=== PATIENT | male | born 1945 | race Caucasian/White ===

== ENCOUNTER 2021-05-07 12:37 | Inpatient (IN) | payer MEDICARE ==
[2021-05-07] MEDS ORDERED: HYDROmorphone 0.5 MG/0.5 ML SYRINGE IVP PRN (20:52)
[2021-05-07] MEDS ORDERED: HEPARIN SODIUM 1,000 UN/ML (10ML VL) IV ONE (20:56)
[2021-05-07] MEDS ORDERED: HEPARIN SODIUM 1,000 UN/ML (10ML VL) IV PRN (20:56)
[2021-05-07] MEDS ORDERED: HEPARIN SOD,PORK IN 0.45% NACL 25,000 UNIT in 0.45% NACL 1 250ML.BAG IV SCH (21:00)
--- NOTE | 2021-05-07 21:53 | XR ---
EXAMINATION TYPE: XR abdomen complete w decub DATE OF EXAM: 05/07/2021 COMPARISON: NONE HISTORY: Abdominal pain TECHNIQUE: 6 views FINDINGS: There is blunting of the left costophrenic angle. There is infiltrate left lung base. There is no sign of intestinal obstruction or pneumoperitoneum. Fecal pattern is normal. There is no evide nce of a mass. There is some spurring in the lumbar spine. There are no pathologic calcifications ove r the kidneys. IMPRESSION: Nonacute abdomen. Infiltrate and atelectasis left lower lobe. This appears the same or sl ightly worse than 263 yesterday.
[2021-05-07] MEDS: SODIUM CHLORIDE 0.9% 1,000 ML IV SCH (21:57)
[2021-05-07] MEDS: PIPERACILLIN-TAZOBACTAM 3.375 GM in SODIUM CHLORIDE 0.9% 100 ML IVPB SCH (23:30)
[2021-05-08 03:57] LABS: Appearance,Urine Clear (Clear); Bilirubin,Urine Negative (Negative); Blood,Urine Negative (Negative); Color,Urine Yellow; Glucose,Urine (UA) Negative (Negative); Ketones,Urine 1+ (Negative); Leukocyte Esterase,Urine Negative (Negative); Nitrite,Urine Negative (Negative); PH, Urine 5.5 (5.0-8.0); Protein,Urine Trace (Negative); Specific Gravity,Urine 1.018 (1.001-1.035)
[2021-05-08 05:44] LABS: Basophils # (A) 0.1 k/uL (0-0.2); Basophils % (A) 1 %; Eosinophils # (A) 0.3 k/uL (0-0.7); Eosinophils % (A) 2 %; HCT 40.1 % (39.0-53.0); HGB 13.2 gm/dL (13.0-17.5); Lymphocytes # (A) 2.7 k/uL (1.0-4.8); Lymphocytes % (A) 14 %; MCH 32.6 pg (25.0-35.0); MCHC 32.9 g/dL (31.0-37.0); MCV 99.1 fL (80.0-100.0); Macrocytosis Slight; Monocytes # (A) 0.6 k/uL (0-1.0); Monocytes % (A) 3 %; Neutrophils # (A) 14.3 k/uL (1.3-7.7); Neutrophils % (A) 77 %; Platelet Count 247 k/uL (150-450); Poikilocytosis Slight; RBC 4.05 m/uL (4.30-5.90); WBC 18.6 k/uL (3.8-10.6)
[2021-05-08 05:48] LABS: INR 1.2 (<1.2); Partial Thromboplastin Time 29.5 sec (22.0-30.0); Prothrombin Time 12.4 sec (9.0-12.0)
[2021-05-08 06:27] LABS: ALT 20 U/L (4-49); AST 38 U/L (17-59); African American GFR (CKD) >90 (>60 ml/min/1.73 sqM); Albumin 3.9 g/dL (3.5-5.0); Alkaline Phosphatase 119 U/L (38-126); Anion Gap 10 mmol/L; Blood Urea Nitrogen 11 mg/dL (9-20); Calcium 8.7 mg/dL (8.4-10.2); Carbon Dioxide 25 mmol/L (22-30); Chloride 102 mmol/L (98-107); Glucose 109 mg/dL (74-99); Magnesium 2.2 mg/dL (1.6-2.3); Non-African American GFR(CKD) >90 (>60 ml/min/1.73 sqM); Sodium 137 mmol/L (137-145); Total Bilirubin 1.5 mg/dL (0.2-1.3); Total Protein 6.4 g/dL (6.3-8.2)
[2021-05-08] MEDS: PANTOPRAZOLE 40 MG/10 ML VIAL IVP SCH (08:50)
[2021-05-08] MEDS: PIPERACILLIN-TAZOBACTAM 3.375 GM in SODIUM CHLORIDE 0.9% 100 ML IVPB SCH (08:50)
--- NOTE | 2021-05-08 08:58 | US ---
EXAMINATION TYPE: US liver DATE OF EXAM: 05/08/2021 COMPARISON: CT from outside institution 05/05/2021 CLINICAL HISTORY: sludge possible mass. abd pain, patient was not cooperative and was laying on right side EXAM MEASUREMENTS: Liver Length: 18.4 cm, span thought likely to be underestimated on measurement Gallbladder Wall: 0.2 cm CBD: 0.3 cm Right Kidney: 11.9 x 4.6 x 5.1 cm Pancreas: portions seen appear wnl Liver: limited views due to patient not cooperating to move or hold breath, posterior right lobe cys t = 2.0cm, liver is enlarged Gallbladder: stones and probable sludge seen, no wall thickening Evidence for sonographic Tolentino's sign: YES CBD: wnl Right Kidney: medial cyst seen = 2.9cm, appears simple IMPRESSION: Positive sonographic Tolentino's sign. Cholelithiasis. Correlate for possible hepatic steato sis, there is hepatomegaly. There are limitations to the exam.
[2021-05-08] MEDS: amLODIPine 5 MG TAB PO SCH (12:07)
[2021-05-08] MEDS: lisinopriL 20 MG TAB PO SCH (12:08)
[2021-05-08] MEDS: CLOPIDOGREL 75 MG TAB PO SCH (13:20)
--- NOTE | 2021-05-08 14:34 | P.HPIM ---
History of Present Illness H&P Date: 05/08/21 This is a 75-year-old male who was admitted to hospital transfer from [facility] where he was initally admitted for evaluation from his PCP on Wednesday for some abdominal pain and discomfort as well as distention. Patient has a past medical history of chest pain, hypertension, A. fib, neuropathy, coronary artery disease. Patient also has a history of cardiac stenting, 2013 and 2017. Patient is evaluated today with his at the bedside. Patient states that he fell one week ago at the gas station after pumping his gas, he had a presyncopal episode, he states that he did not lose consciousness or hit his head. His came to the gas station picked up and to continue the emergency room where he was evaluated for a hypertensive urgency. His blood pressure was found to be 219 systolic he was treated and discharged on Wednesday from [facility]. At that time his white count was found to be in the 20s, blood cultures were taken, results unavailable at this time. He followed up with his PCP on Wednesday and was readmitted to [facility] for an acute abdominal pain. During the course of his hospital stay. Multiple imaging completed, findings of the CT abdomen pelvis could not exclude neoplasm, there are multiple lesions from his liver, cholelithiasis, a prominent prostate, and left urinary bladder wall thickening. In addition spinal megaly was noted. Patient's pro calcitonin was elevated to 0.27, and addition blood glucose was between 130s to 140s. Patient was started on IV Zosyn. states that patient had experienced a coughing fit at [facility] and since then has had intermittent sharp pain over his left upper abdominal quadrant. He was transferred to [facility] for further evaluation for abdominal pain and A. fib RVR. Liver ultrasound completed here revealed positive sonographic Tolentino's, cholelithiasis, possible hepatic steatosis. Abdominal x-ray revealed a nonacute abdomen, infiltrate and atelectasis in the left lower lobe. REVIEW OF SYSTEMS: CONSTITUTIONAL: No fever, no malaise, no fatigue. HEENT: No recent visual problems or hearing problems. Denied any sore throat. CARDIOVASCULAR: No chest pain, orthopnea, PND, no palpitations, no syncope. PULMONARY: No shortness of breath, no cough, no hemoptysis. GASTROINTESTINAL: No diarrhea, no nausea, no vomiting, intermittent left abdominal pain NEUROLOGICAL: No headaches, no weakness, no numbness. HEMATOLOGICAL: Denies any bleeding or petechiae. GENITOURINARY: Denies any burning micturition. Reports urgency and frequency. MUSCULOSKELETAL/RHEUMATOLOGICAL: Denies any joint pain, swelling, or any muscle pain. ENDOCRINE: Denies any polyuria or polydipsia. The rest of the 14-point review of systems is negative. PHYSICAL EXAMINATION: GENERAL: The patient is alert and oriented x3, not in any acute distress. Well developed, well nourished. HEENT: Pupils are round and equally reacting to light. EOMI. No scleral icterus. No conjunctival pallor. Normocephalic, atraumatic. No pharyngeal erythema. No thyromegaly. CARDIOVASCULAR: S1 and S2 present. No murmurs, rubs, or gallops. PULMONARY: Chest is clear to auscultation, no wheezing or crackles. ABDOMEN: Soft, nontender, nondistended, normoactive bowel sounds. No palpable organomegaly. MUSCULOSKELETAL: No joint swelling or deformity. EXTREMITIES: No cyanosis, clubbing, or pedal edema. NEUROLOGICAL: Gross neurological examination did not reveal any focal deficits. SKIN: No rashes. Assessment and plan Assessment Left upper quadrant abdominal pain most likely related to splenomegaly cannot rule out splenic infarct Leukocytosis related to hepatosplenomegaly Hepatosplenomegaly No evidence to suggest an acute bacterial infection; pro calcitonin level was 0.27 at [place], procalcitonin less than 0.3 does not suggest a bacterial etiology for symptoms. Cholelithiasis rule out cholecystitis appreciate surgical input Bladder wall thickening, incidental finding Paroxysmal atrial fibrillation, with rapid ventricular rate maintained on eliquis, Hypertension Infiltrate and/or atelectasis left lower lobe, could suggest some possible pneumonia, chest x-ray has been ordered. Urinary retention, most likely related to BPH, prominent prostate suggested on imaging Plan Left upper quadrant abdominal pain most likely related to splenomegaly, imaging cannot rule out a splenic infarct Leukocytosis related to hepatosplenomegaly, oncology consult, follow recommendations Hepatosplenomegaly consult to oncology has been placed No evidence to suggest an acute bacterial infection, pro calcitonin level was 0.27 at [place], procalcitonin less than 0.3 does not suggest a bacterial etiology for symptoms. IV antibiotics were discontinued Incidental finding of bladder wall thickening, urinalysis ordered to assess hematuria Urinary retention, patient has been started on Flomax Patient is pending a 2 view x-ray to assess for any infiltrate or atelectasis that was found on the abdominal x-ray. At this time antibiotics have been discontinued as there is no evidence to suggest an acute bacterial infection. Eliquis and Plavix are currently on hold pending surgical input for possible intervention for cholecystectomy. If this is cancel and there is felt no need for gallbladder removal, patient can continue on Plavix and eliquis can be reordered. Patient will be started on Flomax. Repeat labs in the morning. Past Medical History Past Medical History: Atrial Fibrillation, Chest Pain / Angina, Hypertension Additional Past Medical History / Comment(s): neuropathy History of Any Multi-Drug Resistant Organisms: None Reported Past Surgical History: Back Surgery, Heart Catheterization With Stent, Hernia Repair Additional Past Surgical History / Comment(s): cataract bilat, cardioversion Past Anesthesia/Blood Transfusion Reactions: No Reported Reaction Date of Last Stent Placement:: 2013 Past Psychological History: No Psychological Hx Reported Smoking Status: Never smoker Past Drug Use History: None Reported - Past Family History Mother Family Medical History: Myocardial Infarction ([place]) Father Family Medical History: Diabetes Mellitus Medications and Allergies Home Medications Medication Instructions Recorded Confirmed Type Apixaban [Eliquis] 5 mg PO BID 05/07/21 05/07/21 History Atorvastatin [Lipitor] 40 mg PO W/SUPPER 05/07/21 05/07/21 History Clopidogrel [Plavix] 75 mg PO DAILY@119905/07/21 05/07/21 History Neuro Assist 1 tab PO DAILY 05/07/21 05/07/21 History Prostate Complete 1 tab PO DAILY@1200 05/07/21 05/07/21 History Vits A,C,E/Lutein/Minerals 1 tab PO DAILY 05/07/21 05/07/21 History [Ocuvite with Lutein Tablet] amLODIPine [Norvasc] 5 mg PO DAILY@0905/07/21 05/07/21 History lisinopriL [Zestril] 20 mg PO DAILY 05/07/21 05/07/21 History Allergies Allergy/AdvReac Type Severity Reaction Status Date / Time No Known Allergies Allergy Unverified 05/07/21 18:34 Physical Exam Vitals: Vital Signs Temp Pulse Pulse Resp BP Pulse Ox 05/08/21 08:00 99.3 F 71 20 156/68 95 05/08/21 03:30 97.9 F 77 17 168/74 95 05/07/21 23:30 98.2 F 78 18 155/75 97 05/07/21 19:30 98.5 F 73 18 137/68 95 05/07/21 17:18 96.5 F L 96 16 134/72 97 05/07/21 16:47 96.5 F L 96 16 134/72 96 Intake and Output 05/07/21 05/08/21 05/08/21 22:59 06:59 14:59 Intake Total 120 Output Total 200 175 300 Balance -80 -175 -300 Intake: Oral 120 Output: Urine 200 175 300 Other: Voiding Method Urinal # Voids 1 1 2 # Bowel Movements 0 Weight 77.7 kg 80 kg Results CBC & Chem 7: 05/08/21 05:16 05/08/21 05:16 Labs: Abnormal Lab Results - Last 24 Hours (Table) 05/08/21 05/08/21 05/08/21 Range/Units 03:13 05:16 05:16 WBC 18.6 H (3.8-10.6) k/uL RBC 4.05 L (4.30-5.90) m/uL Neutrophils # 14.3 H (1.3-7.7) k/uL PT 12.4 H (9.0-12.0) sec INR 1.2 H (<1.2) Glucose (74-99) mg/dL Total Bilirubin (0.2-1.3) mg/dL Urine Protein Trace H (Negative) Urine Ketones 1+ H (Negative) 05/08/21 Range/Units 05:16 WBC (3.8-10.6) k/uL RBC (4.30-5.90) m/uL Neutrophils # (1.3-7.7) k/uL PT (9.0-12.0) sec INR (<1.2) Glucose 109 H (74-99) mg/dL Total Bilirubin 1.5 H (0.2-1.3) mg/dL Urine Protein (Negative) Urine Ketones (Negative) Thrombosis Risk Factor Assmnt - Choose All That Apply Any of the Below Risk Factors Present?: Yes Each Factor Represents 1 point: Acute [place] Each Risk Factor Represents 3 Points: Age 75 years or older Thrombosis Risk Factor Assessment Total Risk Factor Score: 4 Thrombosis Risk Factor Assessment Level: Moderate Risk
--- NOTE | 2021-05-08 14:35 | P.GSCN ---
History of Present Illness Consult date: 05/08/21 History of present illness: CHIEF COMPLAINT: Abdominal pain HISTORY OF PRESENT ILLNESS: This is a 75-year-old male with a known history of coronary artery disease with cardiac stents, atrial fibrillation anticoagulated with Eliquis, hypertension and hyperlipidemia. Patient denies any prior abdominal surgery. He presented to [facility] with complaints of left upper quadrant abdominal pain. Patient has had pain for about one week. He initially went to the ER this past Wednesday and at that time had elevated blood pressure. Medications were adjusted. He had his follow-up with his PCP. Patient continued to complain of left pain upper quadrant abdominal pain. Initially they thought it might have been a pulled muscle from cough. Patient reports decreased appetite. He denies any nausea or vomiting. No increased pain after eating. Denies any right upper quadrant abdominal pain. He had liver ultrasound that showed a positive sonographic Tolentino sign. Cholelithiasis. Possible hepatic steatosis. And hepatomegaly. [facility] Patient denies any fever or chills sweats. He has had leukocytosis. PAST MEDICAL HISTORY: See list. PAST SURGICAL HISTORY: See list. MEDICATIONS: See list. ALLERGIES: See list. SOCIAL HISTORY: No illicit drug use. REVIEW OF SYSTEMS: CONSTITUTIONAL: Denies fever or chills. HEENT: Denies blurred vision, vision changes, or eye pain. Denies hemoptysis CARDIOVASCULAR: Denies chest pain or pressure. RESPIRATORY: No shortness of breath. GASTROINTESTINAL: See HPI for pertinent findings HEMATOLOGIC: Denies bleeding disorders. GENITOURINARY: Denies any blood in urine or increased urinary frequency. SKIN: Denies pruitis. Denies rash. PHYSICAL EXAM: VITAL SIGNS: Reviewed GENERAL: Well-developed in no acute distress. HEENT: No sclera icterus. Extraocular movements grossly intact. Moist buccal mucosa. Head is atraumatic, normocephalic. No nasal drainage. ABDOMEN: Soft. Nondistended. Tenderness with palpation of the left upper quadrant. No tenderness with palpation of the right upper quadrant NEUROLOGIC: Alert and oriented. Cranial nerves II through XII grossly intact. LABORATORY DATA: WBC 18.6 hemoglobin 13.2 platelets 247 INR 1.2 sodium 137 creatinine 0.67 Total bilirubin 1.5 LFTs normal Urinalysis trace protein 1+ ketones negative blood IMAGING: Abdominal x-ray nonacute abdomen. Infiltrate and atelectasis left lower lobe. Liver ultrasound as stated above Computed tomography scan abdomen and pelvis at [place] shows scattered subtle hypodensities within the liver are nonspecific. Cysts and metastatic disease could be considered. Follow-up ultrasound with liver is recommended. Calcified cyst on the left kidney most monitoring is recommended. There may be some thickening along the posterior lateral left urinary bladder wall. Additional workup is recommended. Neoplasm is not excluded. Splenomegaly. Some splenic infarcts are not excluded. ASSESSMENT: 1. Left upper quadrant abdominal pain with splenomegaly noted on CAT scan 2. Cholelithiasis and mildly thickened gallbladder wall noted on ultrasound. No right upper quadrant abdominal pain on exam 3. Leukocytosis 4. History of atrial fibrillation anticoagulated with Eliquis 5. History of coronary artery disease with prior cardiac stents on Plavix PLAN: -No surgical intervention planned -Continue conservative management -Continue workup for leukocytosis. -Agree with hematology consult Thank you for this consultation Physician [employer] Attacher note has been reviewed by physician. Signing provider agrees with the documented findings, assessment, and plan of care. Past Medical History Past Medical History: Atrial Fibrillation, Chest Pain / Angina, Hypertension Additional Past Medical History / Comment(s): neuropathy History of Any Multi-Drug Resistant Organisms: None Reported Past Surgical History: Back Surgery, Heart Catheterization With Stent, Hernia Repair Additional Past Surgical History / Comment(s): cataract bilat, cardioversion Past Anesthesia/Blood Transfusion Reactions: No Reported Reaction Date of Last Stent Placement:: 2013 Past Psychological History: No Psychological Hx Reported Smoking Status: Never smoker Past Drug Use History: None Reported - Past Family History Mother Family Medical History: Myocardial Infarction ([place]) Father Family Medical History: Diabetes Mellitus Medications and Allergies Home Medications Medication Instructions Recorded Confirmed Type Apixaban [Eliquis] 5 mg PO BID 05/07/21 05/07/21 History Atorvastatin [Lipitor] 40 mg PO W/SUPPER 05/07/21 05/07/21 History Clopidogrel [Plavix] 75 mg PO DAILY@119905/07/21 05/07/21 History Neuro Assist 1 tab PO DAILY 05/07/21 05/07/21 History Prostate Complete 1 tab PO DAILY@1200 05/07/21 05/07/21 History Vits A,C,E/Lutein/Minerals 1 tab PO DAILY 05/07/21 05/07/21 History [Ocuvite with Lutein Tablet] amLODIPine [Norvasc] 5 mg PO DAILY@0930 05/07/21 05/07/21 History lisinopriL [Zestril] 20 mg PO DAILY 05/07/21 05/07/21 History Allergies Allergy/AdvReac Type Severity Reaction Status Date / Time No Known Allergies Allergy Unverified 05/07/21 18:34 Surgical - Exam Vital Signs Temp Pulse Resp BP Pulse Ox 96.5 F L 96 16 134/72 96 05/07/21 16:47 05/07/21 16:47 05/07/21 16:47 05/07/21 16:47 05/07/21 16:47 Results - Labs 05/08/21 05:16 05/08/21 05:16 Abnormal Lab Results - Last 24 Hours (Table) 05/08/21 05/08/21 05/08/21 Range/Units 03:13 05:16 05:16 WBC 18.6 H (3.8-10.6) k/uL RBC 4.05 L (4.30-5.90) m/uL Neutrophils # 14.3 H (1.3-7.7) k/uL PT 12.4 H (9.0-12.0) sec INR 1.2 H (<1.2) Glucose (74-99) mg/dL Total Bilirubin (0.2-1.3) mg/dL Urine Protein Trace H (Negative) Urine Ketones 1+ H (Negative) 05/08/21 Range/Units 05:16 WBC (3.8-10.6) k/uL RBC (4.30-5.90) m/uL Neutrophils # (1.3-7.7) k/uL PT (9.0-12.0) sec INR (<1.2) Glucose 109 H (74-99) mg/dL Total Bilirubin 1.5 H (0.2-1.3) mg/dL Urine Protein (Negative) Urine Ketones (Negative) Diabetes panel 05/08/21 Range/Units 05:16 Sodium 137 (137-145) mmol/L Potassium 4.0 (3.5-5.1) mmol/L Chloride 102 (98-107) mmol/L Carbon Dioxide 25 (22-30) mmol/L BUN 11 (9-20) mg/dL Creatinine 0.67 (0.66-1.25) mg/dL Glucose 109 H (74-99) mg/dL Calcium 8.7 (8.4-10.2) mg/dL AST 38 (17-59) U/L ALT 20 (4-49) U/L Alkaline Phosphatase 119 (38-126) U/L Total Protein 6.4 (6.3-8.2) g/dL Albumin 3.9 (3.5-5.0) g/dL Calcium panel 05/08/21 Range/Units 05:16 Calcium 8.7 (8.4-10.2) mg/dL Albumin 3.9 (3.5-5.0) g/dL Pituitary panel 05/08/21 Range/Units 05:16 Sodium 137 (137-145) mmol/L Potassium 4.0 (3.5-5.1) mmol/L Chloride 102 (98-107) mmol/L Carbon Dioxide 25 (22-30) mmol/L BUN 11 (9-20) mg/dL Creatinine 0.67 (0.66-1.25) mg/dL Glucose 109 H (74-99) mg/dL Calcium 8.7 (8.4-10.2) mg/dL Adrenal panel 05/08/21 Range/Units 05:16 Sodium 137 (137-145) mmol/L Potassium 4.0 (3.5-5.1) mmol/L Chloride 102 (98-107) mmol/L Carbon Dioxide 25 (22-30) mmol/L BUN 11 (9-20) mg/dL Creatinine 0.67 (0.66-1.25) mg/dL Glucose 109 H (74-99) mg/dL Calcium 8.7 (8.4-10.2) mg/dL Total Bilirubin 1.5 H (0.2-1.3) mg/dL AST 38 (17-59) U/L ALT 20 (4-49) U/L Alkaline Phosphatase 119 (38-126) U/L Total Protein 6.4 (6.3-8.2) g/dL Albumin 3.9 (3.5-5.0) g/dL
--- NOTE | 2021-05-08 15:10 | XR ---
EXAMINATION TYPE: XR chest 2V DATE OF EXAM: 05/08/2021 COMPARISON: Chest x-ray from outside institution 05/06/2021 HISTORY: Abnormal chest x-ray, left lower lobe atelectasis, infiltrate, shortness of breath TECHNIQUE: Frontal and lateral views of the chest are obtained. FINDINGS: Abnormal density at the left lung base is again noted, there are subsegmental basilar atel ectatic changes. Prominence of pulmonary artery could be indicative of pulmonary artery hypertension. The aorta is dense. Patient is rotated. Cardiac mediastinal silhouette is stable, heart is enlarged, although size may be accentuated by rotation. No evident pneumothorax or sizable effusion. IMPRESSION: Basilar atelectasis, correlate to exclude pneumonia. Cardiomegaly.
[2021-05-08] MEDS: ACETAMINOPHEN TAB 325 MG TAB PO PRN (16:51)
[2021-05-08] MEDS: ATORVASTATIN 40 MG TAB PO SCH (16:51)
[2021-05-08] MEDS: TAMSULOSIN 0.4 MG CAP.ER.24H PO SCH (16:52)
[2021-05-08] MEDS: SODIUM CHLORIDE 0.9% 1,000 ML IV SCH (19:23)
[2021-05-09] MEDS: ACETAMINOPHEN TAB 325 MG TAB PO PRN ×3 (00:04→19:49)
[2021-05-09] MEDS: SODIUM CHLORIDE 0.9% 1,000 ML IV SCH ×2 (00:05→22:04)
--- NOTE | 2021-05-09 00:06 | P.CONS ---
History of Present Illness - Reason for Consult Consult date: 05/08/21 Splenomegaly, Abd pain - History of Present Illness This is a 75 yr old WM, initially seen in consult in the office in 2012. He apparently was noted to have a [place] [address], per his . He was asymptomatic. In 06/03 , he had multiple teeth extracted without any abnormal bleeding. Around 2011, he slipped and hurt his right ribcage. He developed marked bruising , that persisted over several weeks. He thus had repeat CBC done [place] 10/20 [place] [address]. He was sen by Dr Casas, and had a workup which was negative, other than a low titre positive CANDI, which was non specific. 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 In 11/02, his counts started to decline, and he received IVIg. He did not have a significant response, with platelets going down to 7 on 11/14, and then slowly rising back into the [address] range ( [address] on 12/05). A bone marrow was recommended. The pateint was apprehensive about the procedure and was referred here for a second opinion. I reassured him that the procedure would be appropriate in this case. The pt was asked to continue f/u with Dr Casas, but decided to establish care here. He had a bone marrow done on 03/03/13, which he tolerated well. This was consistent with peripheral destruction/ITP. As his counts were stable, in a safe range, it was decide to follow him with observation. He was given a trial of steroids to increase counts temporarily for dental extraction. This was ineffective, and observation was continued as the procedure was put on hold. The patient did not follow-up in the office for 08/05 The patient was admitted this time, as a transfer from [facility] About a week prior to this admission he had had a fall due to presyncope. He was admitted to the hospital at that time and then discharged after treatment for Hypertensive urgency with SBP 219.. He subsequently followed up with his PCP, and was readmitted is complaining of left-sided abdominal pain. According to his the patient had started out the patient had an acute episode of coughing. He had a CT scan, which apparently showed gallbladder stones/sludge, liver lesions and splenomegaly Patient had abdominal x-ray on admission here which showed a left lower lobe infiltrate. Ultrasound showed hepatomegaly but did not mention any lesions in the liver. There appeared to be gallbladder sludge/stones with positive Tolentino sign. Chest x-ray again showed infiltrate/atelectasis in the left lower lobe Consult was therefore placed for further evaluation and recommendations CBC this admission showed elevated WBC with predominant neutrophilia. Platelets are actually normal. The patient is a very poor historian. He was not able to give me any significant details about recent events. He actually remembered seeing me several years ago for low platelets. However he was unable to provide any details about any hematology follow-up or treatment in the interim. Above details were obtained from the EMR. Review of Systems Constitutional: Reports fatigue, Reports weakness Eyes: denies blurred vision, denies pain Ears: deny: decreased hearing, ear discharge, earache, tinnitus Ears, nose, mouth and throat: Denies headache, Denies sore throat Cardiovascular: Reports as per HPI Respiratory: Reports cough Gastrointestinal: Reports abdominal pain Genitourinary: Reports as per HPI Musculoskeletal: Reports muscle weakness Integumentary: Denies pruritus, Denies rash Neurological: Reports as per HPI, Reports confusion Psychiatric: Reports confusion Endocrine: Reports fatigue Hematologic/Lymphatic: Reports as per HPI Past Medical History Past Medical History: Atrial Fibrillation, Chest Pain / Angina, Hypertension Additional Past Medical History / Comment(s): neuropathy History of Any Multi-Drug Resistant Organisms: None Reported Past Surgical History: Back Surgery, Heart Catheterization With Stent, Hernia Repair Additional Past Surgical History / Comment(s): cataract bilat, cardioversion Past Anesthesia/Blood Transfusion Reactions: No Reported Reaction Date of Last Stent Placement:: 2013 Past Psychological History: No Psychological Hx Reported Smoking Status: Never smoker Past Drug Use History: None Reported - Past Family History Mother Family Medical History: Myocardial Infarction ([place]) Father Family Medical History: Diabetes Mellitus Medications and Allergies Home Medications Medication Instructions Recorded Confirmed Type Apixaban [Eliquis] 5 mg PO BID 05/07/21 05/07/21 History Atorvastatin [Lipitor] 40 mg PO W/SUPPER 05/07/21 05/07/21 History Clopidogrel [Plavix] 75 mg PO DAILY@1200 05/07/21 05/07/21 History Neuro Assist 1 tab PO DAILY 05/07/21 05/07/21 History Prostate Complete 1 tab PO DAILY@1200 05/07/21 05/07/21 History Vits A,C,E/Lutein/Minerals 1 tab PO DAILY 05/07/21 05/07/21 History [Ocuvite with Lutein Tablet] amLODIPine [Norvasc] 5 mg PO DAILY@0930 05/07/21 05/07/21 History lisinopriL [Zestril] 20 mg PO DAILY 05/07/21 05/07/21 History Allergies Allergy/AdvReac Type Severity Reaction Status Date / Time No Known Allergies Allergy Unverified 05/07/21 18:34 Physical Exam Vitals: Vital Signs Temp Pulse Resp BP Pulse Ox 05/08/21 20:35 97.9 F 66 18 162/83 97 05/08/21 16:35 98.9 F 76 20 160/71 97 05/08/21 11:54 98.2 F 73 20 175/80 96 05/08/21 08:00 99.3 F 71 20 156/68 95 05/08/21 03:30 97.9 F 77 17 168/74 95 Intake and Output 05/08/21 05/08/21 05/09/21 14:59 22:59 06:59 Intake Total 580 Output Total 400 400 Balance -400 180 Intake: Intake, IV Titration 400 Amount Piperacillin-Tazobactam 3 100 .375 gm In Sodium Chloride 0.9% 100 ml @ 25 mls/hr IVPB Q8HR [facility] Rx# :[id number] Sodium Chloride 0.9% 1, 300 000 ml @ 75 mls/hr IV . [id number] [facility] Rx#:[id number] Oral 180 Output: Urine 400 400 Other: Voiding Method Toilet # Voids 2 1 - Constitutional General appearance: no acute distress - EENT Eyes: EOMI, PERRLA ENT: hearing grossly normal, normal oropharynx - Neck Neck: no lymphadenopathy Thyroid: bilateral: normal size - Respiratory Respiratory: bilateral: CTA - Cardiovascular Rhythm: regular Heart sounds: normal: S1, S2 - Gastrointestinal General gastrointestinal: normal bowel sounds, soft - Integumentary Integumentary: normal - Neurologic Neurologic: CNII-XII intact - Musculoskeletal Musculoskeletal: generalized weakness - Psychiatric Anxious, poor recall Psychiatric: A&O x's 3 Results CBC & Chem 7: 05/08/21 05:16 09/16/21 05:16 Labs: Abnormal Lab Results - Last 24 Hours (Table) 05/08/21 05/08/21 05/08/21 Range/Units 03:13 05:16 05:16 WBC 18.6 H (3.8-10.6) k/uL RBC 4.05 L (4.30-5.90) m/uL Neutrophils # 14.3 H (1.3-7.7) k/uL PT 12.4 H (9.0-12.0) sec INR 1.2 H (<1.2) Glucose (74-99) mg/dL Total Bilirubin (0.2-1.3) mg/dL Urine Protein Trace H (Negative) Urine Ketones 1+ H (Negative) 05/08/21 Range/Units 05:16 WBC (3.8-10.6) k/uL RBC (4.30-5.90) m/uL Neutrophils # (1.3-7.7) k/uL PT (9.0-12.0) sec INR (<1.2) Glucose 109 H (74-99) mg/dL Total Bilirubin 1.5 H (0.2-1.3) mg/dL Urine Protein (Negative) Urine Ketones (Negative) Chest x-ray: report reviewed Abdominal x-ray: report reviewed CT scan - abdomen: report reviewed US - abdomen: report reviewed Assessment and Plan (1) Liver lesion Narrative/Plan: The patient's CT scan mentions some liver lesions described of subtle hypodensities. These appear to be nonspecific. Differentials include benign causes, but metastasis is not ruled out - MRI of the liver will be ordered to evaluate this further. Patient's physical exam is fairly nonspecific Current Visit: Yes Status: Acute Code(s): K76.9 - LIVER DISEASE, UNSPECIFIED SNOMED Code(s): 011394937 (2) Splenomegaly Narrative/Plan: CT scan mentions splenomegaly with possible splenic infarcts not ruled out. Physical exam is negative for any palpable adenopathy. Patient had lab workup for some pancytopenia which essentially the same lab workup splenomegaly in 2013, which was negative. This will be repeated - Repeat labs -Await MRI of the liver. If this shows chronic liver disease, this could expla in the splenomegaly. Current Visit: Yes Status: Acute Code(s): R16.1 - SPLENOMEGALY, NOT ELSEWHERE CLASSIFIED SNOMED Code(s): 59059392 (3) Leucocytosis Narrative/Plan: This appears to be reactive with predominant neutrophilia. Given the chest x-ray findings and his history, this could be due to left lower lobe pneumonia. In addition the patient has splenic infarcts that could explain the same also. Current Visit: Yes Status: Acute Code(s): D72.829 - ELEVATED WHITE BLOOD CELL COUNT, UNSPECIFIED SNOMED Code(s): 178301118 (4) Cholelithiases Narrative/Plan: Ultrasound mentioned cholelithiasis, positive Tolentino's sign. However on exam the patient did appear to be having any tenderness. Await surgical evaluation Current Visit: Yes Status: Acute Code(s): K80.20 - CALCULUS OF GALLBLADDER W/O CHOLECYSTITIS W/O OBSTRUCTION SNOMED Code(s): 474274630 (5) History of ITP Narrative/Plan: Had history of ITP when seen in 2012. At this time, platelet counts are normal. The patient was unable to provide any details as to if he had any hematologic treatment since his last follow-up with me in 08/05. We will to contact his to get any details in this regard Current Visit: Yes Status: Acute Code(s): Z86.2 - PRSNL HISTORY OF DIS OF THE BLD/BL[facility] Code(s): 880471207
[2021-05-09] MEDS: amLODIPine 5 MG TAB PO SCH (09:00)
[2021-05-09] MEDS: PANTOPRAZOLE 40 MG/10 ML VIAL IVP SCH (09:00)
[2021-05-09] MEDS: lisinopriL 20 MG TAB PO SCH (09:00)
[2021-05-09 09:03] LABS: Basophils # (A) 0.1 k/uL (0-0.2); Basophils % (A) 0 %; Eosinophils # (A) 0.3 k/uL (0-0.7); Eosinophils % (A) 2 %; HCT 41.1 % (39.0-53.0); HGB 13.3 gm/dL (13.0-17.5); Lymphocytes # (A) 2.5 k/uL (1.0-4.8); Lymphocytes % (A) 14 %; MCHC 32.4 g/dL (31.0-37.0); MCV 98.7 fL (80.0-100.0); Mean Platelet Volume 12.1; Monocytes # (A) 0.5 k/uL (0-1.0); Monocytes % (A) 3 %; Neutrophils # (A) 14.2 k/uL (1.3-7.7); Neutrophils % (A) 77 %; Platelet Count 269 k/uL (150-450); Poikilocytosis Slight; RBC 4.17 m/uL (4.30-5.90); RDW 15.1 % (11.5-15.5); WBC 18.4 k/uL (3.8-10.6)
[2021-05-09 09:06] LABS: ALT 27 U/L (4-49); AST 43 U/L (17-59); African American GFR (CKD) >90 (>60 ml/min/1.73 sqM); Albumin 3.9 g/dL (3.5-5.0); Alkaline Phosphatase 122 U/L (38-126); Anion Gap 9 mmol/L; Blood Urea Nitrogen 11 mg/dL (9-20); Calcium 8.9 mg/dL (8.4-10.2); Carbon Dioxide 26 mmol/L (22-30); Chloride 101 mmol/L (98-107); Glucose 97 mg/dL (74-99); Non-African American GFR(CKD) >90 (>60 ml/min/1.73 sqM); Potassium 3.8 mmol/L (3.5-5.1); Sodium 136 mmol/L (137-145); Total Bilirubin 1.4 mg/dL (0.2-1.3); Total Protein 6.4 g/dL (6.3-8.2)
--- NOTE | 2021-05-09 10:57 | P.PN ---
Subjective Progress Note Date: 05/09/21 CHIEF COMPLAINT: Abdominal pain HISTORY OF PRESENT ILLNESS: Patient is lying in bed comfortably. He reports improvement in his left upper quadrant abdominal pain. He denies any right upper quadrant abdominal pain. He was able to eat breakfast without any abdominal pain. Denies any nausea or vomiting. He's being followed by hematology. They've ordered an MRI of the liver for further evaluation of his liver lesions or cysts. Afebrile. WBC is 18.4 hemoglobin 13.3 platelets 269 INR 1.2 sodium 136 potassium 3.8 creatinine 0.58 Chest x-ray basilar atelectasis, correlate to exclude pneumonia. Cardiomegaly PHYSICAL EXAM: VITAL SIGNS: Reviewed. GENERAL: Well-developed in no acute distress. HEENT: No sclera icterus. Extraocular movements grossly intact. Moist buccal mucosa. Head is atraumatic, normocephalic. ABDOMEN: Soft. Nondistended. Nontender. NEUROLOGIC: Alert and oriented. Cranial nerves II through XII grossly intact. ASSESSMENT: 1. Left upper quadrant abdominal pain with spinal megaly noted on CAT scan. Patient's pain has resolved. 2. Cholelithiasis and mildly thickened gallbladder wall noted on ultrasound. No right upper quadrant abdominal pain on exam 3. Leukocytosis 4. History of atrial fibrillation anticoagulated with Eliquis 5. History of coronary artery disease with prior cardiac stents on Plavix PLAN: -No surgical intervention planned -Continue conservative management -Continue heart healthy diet -Continue heme/onc workup Physician Central Control Room Operator note has been reviewed by physician. Signing provider agrees with the documented findings, assessment, and plan of care. Objective - Vital Signs Vital signs: Vital Signs Temp 98.9 F 05/09/21 00:00 Pulse 74 05/09/21 04:50 Resp 05/09/21 04:50 BP 138/68 05/09/21 04:50 Pulse Ox 96 05/09/21 04:50 Intake & Output 05/08/21 05/09/21 05/09/21 18:59 06:59 18:59 Intake Total 580 Output Total 800 125 Balance -220 -125 Weight 73.5 kg Intake: Intake, IV Titration 400 Amount Piperacillin-Tazobactam 3 100 .375 gm In Sodium Chloride 0.9% 100 ml @ 25 mls/hr IVPB Q8HR [facility] Rx# :[id number] Sodium Chloride 0.9% 1, 300 000 ml @ 75 mls/hr IV . [id number] [facility] Rx#:[id number] Oral 180 Output: Urine 800 125 Other: Voiding Method Toilet # Voids 2 1 1 - Labs CBC & Chem 7: 05/09/21 07:56 05/09/21 07:56 Labs: Abnormal Lab Results - Last 24 Hours (Table) 05/09/21 05/09/21 Range/Units 07:56 07:56 WBC 18.4 H (3.8-10.6) k/uL RBC 4.17 L (4.30-5.90) m/uL Neutrophils # 14.2 H (1.3-7.7) k/uL Sodium 136 L (137-145) mmol/L Creatinine 0.58 L (0.66-1.25) mg/dL Total Bilirubin 1.4 H (0.2-1.3) mg/dL
[2021-05-09] MEDS: CLOPIDOGREL 75 MG TAB PO SCH (12:09)
--- NOTE | 2021-05-09 15:28 | P.PN ---
Subjective Progress Note Date: 05/09/21 This is a 75-year-old male who was admitted to hospital transfer from [facility] where he was initally admitted for evaluation from his PCP on Wednesday for some abdominal pain and discomfort as well as distention. Patient has a past medical history of chest pain, hypertension, A. fib, neuropathy, coronary artery disease. Patient also has a history of cardiac stenting, 2013 and 2017. Patient is evaluated today with his at the bedside. Patient states that he fell one week ago at the gas station after pumping his gas, he had a presyncopal episode, he states that he did not lose consciousness or hit his head. His came to the gas station picked up and to continue the emergency room where he was evaluated for a hypertensive urgency. His blood pressure was found to be 219 systolic he was treated and discharged on Wednesday from [facility]. At that time his white count was found to be in the 20s, blood cultures were taken, results unavailable at this time. He followed up with his PCP on Wednesday and was readmitted to [facility] for an acute abdominal pain. During the course of his hospital stay. Multiple imaging completed, findings of the CT abdomen pelvis could not exclude neoplasm, there are multiple lesions from his liver, cholelithiasis, a prominent prostate, and left urinary bladder wall thickening. In addition splenomegaly was noted. Patient's pro calcitonin was elevated to 0.27, and addition blood glucose was between 130s to 140s. Patient was started on IV Zosyn. states that patient had experienced a coughing fit at [facility] and since then has had intermittent sharp pain over his left upper abdominal quadrant. He was transferred to [facility] for further evaluation for abdominal pain and A. fib RVR. Liver ultrasound completed here revealed positive sonographic Tolentino's, cholelithiasis, possible hepatic steatosis. Abdominal x-ray revealed a nonacute abdomen, infiltrate and atelectasis in the left lower lobe. 05/09/2021 Patient is seen and evaluated in follow-up this morning and reports to having continued abdominal discomfort of the left upper and lower quadrant. Patient states the pain is intermittent and coming and going. MRI of the liver is ordered with oncology following closely. Surgery also following recommending conservative management and outpatient follow-up. Discussed with family at the bedside about treatment plan and will await MRI results and continue current medication regimen. Per nursing staff patient had some periods of confusion shortly after receiving Dilaudid and will discontinue and add [place] as needed and continue with Tylenol. Patient is continued on heart healthy diet with no reports of nausea or vomiting noted. Encouraged increased activity as tolerated. Review of systems: Constitutional: reports of fatigue, no reports of fever, or chills Cardiovascular: No reports of chest pain or palpitations Respiratory: No reports of shortness of breath or cough GI: No reports of nausea, vomiting, or diarrhea, reports abdominal pain : No reports of dysuria or retention Neurovascular: Reports generalized weakness All medications have been reviewed Active Medications Acetaminophen (Acetaminophen Tab 325 Mg Tab) 650 mg PO Q6HR PRN PRN Reason: Fever and/ or Mild Pain Last Admin: 05/09/21 08:59 Dose: 650 mg Documented by: Hydrocodone Bitart/Acetaminophen (Hydrocodone/Apap 5-325mg 1 Each Tab) 1 each PO Q6HR PRN PRN Reason: Pain Amlodipine Besylate (Amlodipine 5 Mg Tab) 5 mg PO DAILY@0930 [facility] Last Admin: 05/09/21 09:00 Dose: 5 mg Documented by: Atorvastatin Calcium (Atorvastatin 40 Mg Tab) 40 mg PO W/SUPPER [facility] Last Admin: 05/08/21 16:51 Dose: 40 mg Documented by: Clopidogrel Bisulfate (Clopidogrel 75 Mg Tab) 75 mg PO DAILY@1200 [facility] Last Admin: 05/09/21 12:09 Dose: 75 mg Documented by: Sodium Chloride (Saline 0.9%) 1,000 mls @ 75 mls/hr IV .[id number] [facility] Last Admin: 05/09/21 00:05 Dose: 75 mls/hr Documented by: Lisinopril (Lisinopril 20 Mg Tab) 20 mg PO DAILY [facility] Last Admin: 05/09/21 09:00 Dose: 20 mg Documented by: Pantoprazole Sodium (Pantoprazole 40 Mg Tablet) 40 mg PO AC-BRKFST [facility] Tamsulosin HCl (Tamsulosin 0.4 Mg Cap.Er.24h) 0.4 mg PO PC-SUPPER [facility] Last Admin: 05/08/21 16:52 Dose: 0.4 mg Documented by: Physical exam: GENERAL: The patient is alert and oriented x3, Well developed, well nourished. Temp is 97.9F, pulse is 65, respirations are 16, blood pressure is 131/66, oxygen saturation is 95% on room air. HEENT: Pupils are round and equally reacting to light. EOMI. No scleral icterus. No conjunctival pallor. Normocephalic, atraumatic. No pharyngeal erythema. No thyromegaly. CARDIOVASCULAR: S1 and S2 muffled PULMONARY: Diminished breath sounds bilaterally with some scattered rhonchi noted. ABDOMEN: Soft, mildly tender on palpation, nondistended, normoactive bowel sounds. No palpable organomegaly. MUSCULOSKELETAL: No joint swelling or deformity. EXTREMITIES: No cyanosis, clubbing, or pedal edema. NEUROLOGICAL: Gross neurological examination did not reveal any focal deficits. SKIN: No rashes. Assessment: Left upper quadrant abdominal pain most likely related to splenomegaly cannot rule out splenic infarct Leukocytosis related to hepatosplenomegaly Hepatosplenomegaly No evidence to suggest an acute bacterial infection; pro calcitonin level was 0.27 at [place], procalcitonin less than 0.3 does not suggest a bacterial etiology for symptoms. Chronic Cholelithiasis ruled out cholecystitis Bladder wall thickening, incidental finding Paroxysmal atrial fibrillation, with rapid ventricular rate, presently rate controlled, maintained on eliquis Hypertension Infiltrate and/or atelectasis left lower lobe, could suggest some possible pneumonia Urinary retention, most likely related to BPH, prominent prostate suggested on imaging DVT prophylaxis GI prophylaxis Plan: Recommend to continue with current medications, symptomatic treatment and current medical management. Hematology and surgery following closely. Surgery has evaluated the patient recommending no surgical interventions at this time and continuing with conservative management and outpatient follow-up. Hematology following closely with past medical history of ITP and did follow with Dr. Chery in 2013. MRI of the liver is ordered and pending. Patient was having some urinary retention and started on Flomax and states he has been urinating with no difficulties. IV antibiotics have been discontinued and we'll continue to monitor closely with repeat labs. Plavix and eliquis will be res umed monitor closely for any bleeding. White blood count continues to be elevated at 18.4, hemoglobin is 13.3, platelets are 269, sodium is 136 with a potassium of 3.8 and current creatinine is 0.58. Total bilirubin is 1.4 and LFTs are within normal limits. Patient is afebrile. Will repeat labs and continue to monitor closely. Due to multiple complex medical issues, prognosis is guarded. Objective - Vital Signs Vital signs: Vital Signs Temp 98.9 F 05/09/21 00:00 Pulse 74 05/09/21 04:50 Resp 17 05/09/21 04:50 BP 138/68 05/09/21 04:50 Pulse Ox 96 05/09/21 04:50 Intake & Output 05/08/21 05/09/21 05/09/21 18:59 06:59 18:59 Intake Total 580 Output Total 800 125 Balance -220 -125 Weight 73.5 kg Intake: Intake, IV Titration 400 Amount Piperacillin-Tazobactam 3 100 .375 gm In Sodium Chloride 0.9% 100 ml @ 25 mls/hr IVPB Q8HR [facility] Rx# :[id number] Sodium Chloride 0.9% 1, 300 000 ml @ 75 mls/hr IV . [id number] [facility] Rx#:[id number] Oral 180 Output: Urine 800 125 Other: Voiding Method Toilet # Voids 2 1 1 - Labs CBC & Chem 7: 05/09/21 07:56 05/09/21 07:56 Labs: Abnormal Lab Results - Last 24 Hours (Table) 05/09/21 05/09/21 Range/Units 07:56 07:56 WBC 18.4 H (3.8-10.6) k/uL RBC 4.17 L (4.30-5.90) m/uL Neutrophils # 14.2 H (1.3-7.7) k/uL Sodium 136 L (137-145) mmol/L Creatinine 0.58 L (0.66-1.25) mg/dL Total Bilirubin 1.4 H (0.2-1.3) mg/dL
--- NOTE | 2021-05-09 16:28 | P.PN ---
Subjective Progress Note Date: 05/09/21 Principal diagnosis: splenomegaly In f/u pt has no new physical c/o. Objective - Vital Signs Vital signs: Vital Signs Temp 97.7 F 05/09/21 16:00 Pulse 72 05/09/21 16:00 Resp 18 05/09/21 16:00 BP 154/78 05/09/21 16:00 Pulse Ox 97 05/09/21 16:00 Intake & Output 05/08/21 05/09/21 05/09/21 18:59 06:59 18:59 Intake Total 580 120 Output Total 800 125 Balance -220 -125 120 Weight 73.5 kg Intake: Intake, IV Titration 400 Amount Piperacillin-Tazobactam 3 100 .375 gm In Sodium Chloride 0.9% 100 ml @ 25 mls/hr IVPB Q8HR [facility] Rx# :[id number] Sodium Chloride 0.9% 1, 300 000 ml @ 75 mls/hr IV . [id number] [facility] Rx#:[id number] Oral 180 120 Output: Urine 800 125 Other: Voiding Method Toilet # Voids 2 1 1 - Constitutional General appearance: Present: average body habitus, cooperative, no acute distress - EENT Eyes: Present: anicteric sclerae, EOMI ENT: Present: hearing grossly normal - Respiratory Details: resp even and unlabored - Psychiatric Psychiatric: Present: A&O x's 3, appropriate affect - Labs CBC & Chem 7: 05/09/21 07:56 05/09/21 07:56 Labs: Abnormal Lab Results - Last 24 Hours (Table) 05/09/21 05/09/21 Range/Units 07:56 07:56 WBC 18.4 H (3.8-10.6) k/uL RBC 4.17 L (4.30-5.90) m/uL Neutrophils # 14.2 H (1.3-7.7) k/uL Sodium 136 L (137-145) mmol/L Creatinine 0.58 L (0.66-1.25) mg/dL Total Bilirubin 1.4 H (0.2-1.3) mg/dL Assessment and Plan (1) History of ITP Narrative/Plan: Resolved spontaneously based on 's report-pt never had treatment, saw Heme other then Dr. Chery years ago. Current Visit: No Status: Chronic Priority: Low Code(s): Z86.2 - PRSNL HISTORY OF DIS OF THE BLD/BLD-FORM ORG/IMMUN [facility] SNOMED Code(s): 312589162 (2) Liver lesion Current Visit: Yes Status: Acute Priority: High Code(s): K76.9 - LIVER DISEASE, UNSPECIFIED SNOMED Code(s): 900751751 (3) Splenomegaly Narrative/Plan: Pending results of MRI liver. Labs pending Current Visit: Yes Status: Acute Priority: High Code(s): R16.1 - SPLENOMEGALY, NOT ELSEWHERE CLASSIFIED SNOMED Code(s): 55453068 Plan: On abx for suspected lt pneumonia, suspect in part causing increased WBC. Will cont to monitor WBC Doctor attests: I performed a history and physical examination of this patient, developed impression and plan of care, discussed with dictator. I agree with dictators note, documented as a scribe.
[2021-05-09] MEDS: ATORVASTATIN 40 MG TAB PO SCH (17:21)
[2021-05-09] MEDS: TAMSULOSIN 0.4 MG CAP.ER.24H PO SCH (17:25)
--- NOTE | 2021-05-09 19:47 | MR ---
EXAMINATION TYPE: MR liver wo/w con DATE OF EXAM: 05/09/2021 COMPARISON: 05/05/2021 HISTORY: Liver lesions seen on CT CONTRAST: Standard multiplanar, multisequence MRI departmental protocol utilizing 7ml mL intravenous Gadavist g adolinium contrast. Spleen is markedly enlarged and measures 18 cm in length. There are multiple irregular areas of incre ased signal on the T2 images in the spleen consistent with multiple infarcts. There are numerous cyst s in the liver. These measure up to almost 3 cm. The bile ducts are not dilated. There are numerous g allstones. Gallbladder wall is not thickened. The bile ducts are not dilated. There is no sign of a p ancreatic mass. Pancreatic duct is not dilated. There is no sign of retroperitoneal adenopathy. There is no adrenal mass. Stomach has normal size. Liver has normal size and measures 19 cm in length. Contrast images show normal enhancement of the portal venous system. There is no pathologic enhanceme nt. There is no adrenal mass. Kidneys have normal size. There is 3 cm cortical cyst anterior right kidney . There is 4.5 cm cortical cyst lateral left kidney. There is no evidence of ascites. There is evidence of a small left pleural effusion. Visualized spine appears intact. IMPRESSION: There is moderate splenomegaly with multiple peripheral cortical lesions consistent with multiple spl enic infarcts. This appears unchanged compared to CT scan of 05/05/2021. Multiple hepatic and renal cortical cysts. No dilated ducts. There is small left pleural effusion and left basilar infiltrate that appears increased compared to 05/05/2021. No evidence of a solid liver mass. Cholelithiasis.
[2021-05-09] MEDS: APIXABAN 5 MG TAB PO SCH (21:35)
[2021-05-10 03:40] LABS: Rheumatoid Factor, Qnt <4 IU/mL (0-15)
[2021-05-10] MEDS: HYDROcodone/APAP 5-325MG 1 EACH TAB PO PRN (04:19)
[2021-05-10] MEDS: PANTOPRAZOLE 40 MG TABLET PO SCH (07:09)
[2021-05-10] MEDS: SODIUM CHLORIDE 0.9% 1,000 ML IV SCH ×2 (07:09→16:05)
[2021-05-10] MEDS: lisinopriL 20 MG TAB PO SCH (09:14)
[2021-05-10] MEDS: amLODIPine 5 MG TAB PO SCH (09:14)
[2021-05-10] MEDS: APIXABAN 5 MG TAB PO SCH ×2 (09:14→20:15)
[2021-05-10 09:26] LABS: African American GFR (CKD) >90 (>60 ml/min/1.73 sqM); Anion Gap 6 mmol/L; Blood Urea Nitrogen 12 mg/dL (9-20); Calcium 8.9 mg/dL (8.4-10.2); Carbon Dioxide 28 mmol/L (22-30); Chloride 101 mmol/L (98-107); Glucose 158 mg/dL (74-99); Magnesium 2.2 mg/dL (1.6-2.3); Non-African American GFR(CKD) >90 (>60 ml/min/1.73 sqM); Potassium 3.9 mmol/L (3.5-5.1); Sodium 135 mmol/L (137-145)
[2021-05-10 09:40] LABS: Basophils # (A) 0.1 k/uL (0-0.2); Basophils % (A) 1 %; Eosinophils # (A) 0.3 k/uL (0-0.7); Eosinophils % (A) 2 %; HCT 40.5 % (39.0-53.0); Lymphocytes # (A) 2.5 k/uL (1.0-4.8); Lymphocytes % (A) 15 %; MCH 31.8 pg (25.0-35.0); MCHC 32.2 g/dL (31.0-37.0); MCV 98.8 fL (80.0-100.0); Macrocytosis Slight; Mean Platelet Volume 12.7; Monocytes # (A) 0.5 k/uL (0-1.0); Monocytes % (A) 3 %; Neutrophils # (A) 12.9 k/uL (1.3-7.7); Neutrophils % (A) 76 %; Platelet Count 266 k/uL (150-450); Poikilocytosis Slight; RDW 15.2 % (11.5-15.5); WBC 16.9 k/uL (3.8-10.6)
--- NOTE | 2021-05-10 11:37 | P.PN ---
Progress Note - Text Progress Note Date: 05/10/21 Patient resting comfortably his bed. He denies any significant abdominal pain. On exam vital signs are stable. Abdomen is soft. Cholelithiasis with chronic cholestasis. Patient will be most likely discharged home today he'll follow-up the office as outpatient.
[2021-05-10] MEDS: CLOPIDOGREL 75 MG TAB PO SCH (11:50)
[2021-05-10] MEDS: ACETAMINOPHEN TAB 325 MG TAB PO PRN (15:35)
[2021-05-10] MEDS: TAMSULOSIN 0.4 MG CAP.ER.24H PO SCH (18:25)
[2021-05-10] MEDS: ATORVASTATIN 40 MG TAB PO SCH (18:26)
--- NOTE | 2021-05-10 20:08 | PN ---
PROGRESS NOTE DATE OF SERVICE: 05/10/2021 This 75-year-old gentleman admitted with significant abdominal pain had splenomegaly and as well as splenic infarct. The patient being closely monitored. The patient had previous history of prior ITP, with thrombocytopenia . There is no history of fever, rigors or chills. PAST MEDICAL HISTORY: Reviewed. REVIEW OF SYSTEMS: Cardio systems: No angina. Respiration: No cough. GI: As mentioned earlier. : No dysuria. CURRENT MEDICATIONS: Reviewed and include: Tylenol, Barrett, Norvasc, Eliquis, Lipitor, Plavix, Zestril, Protonix, doses reviewed. PHYSICAL EXAMINATION: Patient is alert, oriented x2. Pulse 68, blood pressure is 148/70. Respirations 18. Temp 98 degrees, pulse ox 94% on room air. HEENT: Conjunctivae normal. NECK: No JVD. Cardiovascular: S1, S2 muffled. RESPIRATORY: Breath sounds diminished in the bases. A few scattered rhonchi and crackles. ABDOMEN: Soft. Mild diffuse tenderness present. LEGS are no edema. No swelling. LABS: WBC 16.9, hemoglobin 13. Sodium is 135 and vitamin B12 1590. ASSESSMENT: 1. Abdominal pain with possible splenic infarct. 2. Hepatosplenomegaly. 3. Leukocytosis. 4. Chronic cholelithiasis. 5. Bladder wall thickening. 6. Paroxysmal atrial fibrillation. 7. Hypertension. 8. Atelectasis infiltrate in the left lower lobe. 9. Urinary retention. 10.Deep vein thrombosis prophylaxis. 11.Elevated bilirubin. 12.Hyponatremia mild. 13.Increased WBC, possibly neutrophilic. RECOMMENDATIONS: This 75-year-old gentleman who presented with multiple medical issues, we will monitor the patient closely. Continue the current medications, symptomatic treatment. Liver MRI has been noted. I would also recommend an ultrasound duplex for the splenic and portal vein. Otherwise, comment on the peripheral smear also will be sought. The prognosis is guarded because of multiple complex medical issues. Further recommendations to follow. See orders for details. MMODL / IJN: [id number] / MTDD
[2021-05-10] MEDS: IOPAMIDOL CONTRAST (ORAL USE) VIAL PO PRN ×2 (20:16→21:39)
[2021-05-10 20:19] LABS: ALT 26 U/L (4-49); AST 41 U/L (17-59); African American GFR (CKD) >90 (>60 ml/min/1.73 sqM); Albumin 3.9 g/dL (3.5-5.0); Alkaline Phosphatase 109 U/L (38-126); Anion Gap 9 mmol/L; Blood Urea Nitrogen 11 mg/dL (9-20); C Reactive Protein 5.7 mg/dL (<1.0); Calcium 8.6 mg/dL (8.4-10.2); Carbon Dioxide 24 mmol/L (22-30); Chloride 102 mmol/L (98-107); Glucose 141 mg/dL (74-99); Non-African American GFR(CKD) >90 (>60 ml/min/1.73 sqM); Potassium 3.9 mmol/L (3.5-5.1); Sodium 135 mmol/L (137-145); Total Bilirubin 1.1 mg/dL (0.2-1.3); Total Protein 6.5 g/dL (6.3-8.2)
--- NOTE | 2021-05-10 23:29 | CT ---
EXAMINATION TYPE: CT abdomen pelvis wo con DATE OF EXAM: 05/10/2021 COMPARISON: 05/05/2021 HISTORY: splenomegaly CT DLP: 610 mGycm Automated exposure control for dose reduction was used. There is airspace infiltrate and atelectasis in both lower lobes. This consolidation left posterior l astrid base. Heart is enlarged. There is coronary artery calcification. Liver is intact. The bile ducts are not dilated. Gallbladder shows multiple foci of increased density consistent with multiple small calcified gallstones. There is 2 cm cyst in the right lobe of the yuliana er. Spleen is enlarged with hypodensities in the subcortical region. Spleen measures 16 cm with multi ple infarcts that measure up to 3 cm. There is no evidence of pancreatic mass. Stomach is intact. There is no adrenal mass. Kidneys have normal size. There is no hydronephrosis. There is 4.3 cm corti shahana cyst lateral left kidney. Bladder distends smoothly. There is no inguinal hernia. There is no gage e fluid in the pelvis. There is no evidence of a pelvic mass. There is no mesenteric edema. There is no ascites or free air. There is no bowel obstruction. There is normal contrast opacification of the small bowel. Appendix is not seen. There is no sign of thickened appendix. The lumbar vertebra have normal alignment. Posterior elements are intact. There is no compression fra cture. Bony pelvis is intact. The hip joints are intact. IMPRESSION: There is some patchy infiltrate and atelectasis at the lung bases and more on the left side. Cardiome akanksha. Atherosclerotic vascular disease. Cholelithiasis. No acute abnormality in the abdomen pelvis.
[2021-05-11] MEDS: ACETAMINOPHEN TAB 325 MG TAB PO PRN (00:41)
[2021-05-11] MEDS: SODIUM CHLORIDE 0.9% 1,000 ML IV SCH ×2 (05:00→18:09)
[2021-05-11] MEDS: PANTOPRAZOLE 40 MG TABLET PO SCH (07:07)
[2021-05-11 08:07] LABS: Basophils # (A) 0.1 k/uL (0-0.2); Basophils % (A) 1 %; Eosinophils # (A) 0.4 k/uL (0-0.7); Eosinophils % (A) 2 %; HCT 40.2 % (39.0-53.0); HGB 12.8 gm/dL (13.0-17.5); Lymphocytes # (A) 2.3 k/uL (1.0-4.8); Lymphocytes % (A) 13 %; MCHC 31.7 g/dL (31.0-37.0); MCV 97.9 fL (80.0-100.0); Mean Platelet Volume 12.3; Monocytes # (A) 0.6 k/uL (0-1.0); Monocytes % (A) 3 %; Neutrophils # (A) 13.9 k/uL (1.3-7.7); Neutrophils % (A) 77 %; Platelet Count 256 k/uL (150-450); Poikilocytosis Slight; RBC 4.11 m/uL (4.30-5.90); WBC 18.2 k/uL (3.8-10.6)
--- NOTE | 2021-05-11 08:41 | US ---
EXAMINATION TYPE: US abdomen limited DATE OF EXAM: 05/11/2021 COMPARISON: NONE CLINICAL HISTORY: 75-year-old male splenomegaly, assess for thrombosis. Security Operations Analyst notes: Ordered to assess portal vein and splenic vein, patient has history of multiple sp lenic infarcts, splenomegaly, painful spasms in the LUQ, normal CT. Normal MRI vasculature, Technique: Multiple sonographic images of the left upper quadrant as well as the portal venous system were obtained with color Doppler and spectral waveform analysis. FINDINGS: Splenic vein and portal system were evaluated with no obvious thrombosis seen. Normal doppler assessm ent noted. Splenic vein at confluence and hilum of spleen were seen, some areas mid were gassed out. IMPRESSION: Doppler assessment of the splenic vein, main portal vein, right and left portal veins. The vessels ar e patent with appropriate flow direction.
[2021-05-11] MEDS: amLODIPine 5 MG TAB PO SCH (09:13)
[2021-05-11] MEDS: APIXABAN 5 MG TAB PO SCH ×2 (09:13→20:00)
[2021-05-11] MEDS: lisinopriL 20 MG TAB PO SCH (09:13)
[2021-05-11 09:59] LABS: Large Platelets Present
[2021-05-11] MEDS: HYDROcodone/APAP 5-325MG 1 EACH TAB PO PRN (11:32)
[2021-05-11] MEDS: CLOPIDOGREL 75 MG TAB PO SCH (11:32)
[2021-05-11 11:44] LABS: Free Kappa Lt Chain Qnt, Serum 1.25 mg/dL (0.33-1.94)
--- NOTE | 2021-05-11 11:57 | P.PN ---
Progress Note - Text Progress Note Date: 05/11/21 Patient may still. He denies any significant abdominal pain. He has no pain or quadrant. On exam her vital signs are stable. Abdomen soft. Chronic cholelithiasis. Patient will be observed at this time.
--- NOTE | 2021-05-11 13:31 | CT ---
EXAMINATION TYPE: CT angio chest DATE OF EXAM: 05/11/2021 COMPARISON: Radiograph 05/08/2021 HISTORY: 75-year-old male shortness of breath, elevated d dimer TECHNIQUE: Contiguous axial scanning of the chest performed with IV Contrast, patient injected with 1 00 mL of Isovue 370. Delayed coronal/sagittal MIP reconstructions performed. CT DLP: 296 mGycm Automated exposure control for dose reduction was used. FINDINGS: The heart is normal size with trace pericardial effusion. No flattening of the interventricular septu m or reflux of contrast into the hepatic veins. LAD coronary artery calcifications are present. Mild aortic valvular calcifications. Mild ectasia aortic root at 3.7 cm. 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 There is conventional tarsal branching anatomy. There is focal, lobulated, and nonocclusive filling defect along the distal aortic arch measuring 3.9 x 1.7 x 2.3 cm projecting into the lumen of the aorta, refer to coronal image 70, axial image 41, an d sagittal image 107 and adherent to the greater curvature of the distal arch. Satisfactory opacification of the pulmonary artery system without evidence for pulmonary embolus. Bands of atelectasis in lower lungs. There is a small left pleural effusion and combination of atelec tasis and basilar left lower lobe consolidation. Wedge-shaped areas of hypodensity within the spleen with small anterior splenule. There is splenomega ly at 16.1 cm. Small hepatic hypodensities are nonspecific and could represent cysts. Bones: Bridging endplate spondylosis throughout the thoracic spine. Findings could represent ankylosi ng spondylitis. IMPRESSION: 1. UNUSUAL FINDING OF A LARGE INTRALUMINAL CLOT/THROMBUS MEASURING UP TO 3.9 CM (REFER TO SAGITTAL IM AGE 89), PARTIALLY ADHERENT TO THE GREATER CURVATURE OF THE DISTAL AORTIC ARCH. CONSIDER VASCULAR CHRISTOPHER RGERY OR CARDIOTHORACIC SURGERY EVALUATION. 2. REDEMONSTRATED MULTIPLE WEDGE-SHAPED PERIPHERAL SPLENIC HYPODENSITIES SUGGEST MULTIPLE SPLENIC INF ARCTS PROBABLY DUE TO EMBOLIZATION FROM THE ABOVE-MENTIONED CLOT. 3. THE SMALL LEFT PLEURAL EFFUSION MAY BE REACTIVE TO THE MULTIPLE SPLENIC INFARCTS. GIVEN THE PROMIN ENT BASILAR LEFT LOWER LOBE CONSOLIDATION, IT COULD ALSO BE REACTIVE TO A LOWER LOBE PNEUMONIA. CLINI JOCELYN CORRELATE. 4. NO EVIDENCE FOR PULMONARY EMBOLUS. 5. POSSIBLE UNDERLYING ANKYLOSING SPONDYLITIS.
[2021-05-11] MEDS: ATORVASTATIN 40 MG TAB PO SCH (16:59)
[2021-05-11 17:53] LABS: ALT 29 U/L (4-49); AST 45 U/L (17-59); African American GFR (CKD) >90 (>60 ml/min/1.73 sqM); Albumin 4.2 g/dL (3.5-5.0); Alkaline Phosphatase 131 U/L (38-126); Anion Gap 8 mmol/L; Blood Urea Nitrogen 9 mg/dL (9-20); Carbon Dioxide 28 mmol/L (22-30); Chloride 99 mmol/L (98-107); Glucose 117 mg/dL (74-99); Non-African American GFR(CKD) >90 (>60 ml/min/1.73 sqM); Potassium 4.3 mmol/L (3.5-5.1); Sodium 135 mmol/L (137-145); Total Bilirubin 1.2 mg/dL (0.2-1.3); Total Protein 6.8 g/dL (6.3-8.2)
[2021-05-11] MEDS: TAMSULOSIN 0.4 MG CAP.ER.24H PO SCH (18:09)
--- NOTE | 2021-05-11 18:38 | PN ---
PROGRESS NOTE DATE OF SERVICE: 05/11/2021 This 75 -year-old gentleman admitted with abdominal pain, splenic infarct, also had elevated D-dimer. A CT scan angio of the chest showed large intraluminal clot thrombus measuring 3 cm, possibly radiating to the of the distal aortic arch and wedge splenic infarcts also noted and small left pleural effusions also noted. There was no evidence of pulmonary embolism, possible underlying ankylosing spondylitis also noted. I discussed the case at length with Dr. Magana the vascular surgeon who recommended transfer to tertiary care center, possibly [facility]. There is no history of chest pain or palpitation. PAST MEDICAL HISTORY: Reviewed. REVIEW OF SYMPTOMS: Cardiovascular systems: No angina. Respirations as mentioned earlier. GI: As mentioned earlier. : No dysuria. Nervous System: No numbness or weakness. CURRENT MEDICATIONS: Reviewed and include: Tylenol, Alexis, Norvasc, Eliquis, Lipitor, Plavix, Zestril, Protonix. PHYSICAL EXAMINATION: Patient is alert, oriented x3. Pulse 72, blood pressure 119/56, respirations 18, temperature 98.4, pulse ox 96% on room air. HEENT: Conjunctivae normal. NECK: No JVD. CARDIOVASCULAR: S1, S2 muffled. RESPIRATIONS: Breath sounds diminished in the bases. A few scattered rhonchi. ABDOMEN: Soft, nontender. No mass palpable. LEGS: No edema, no swelling. NERVOUS SYSTEM: No focal deficits. LABS: WBC 18, hemoglobin 12.8. D-dimer 1.52. ASSESSMENT: 1. Acute multiple splenic infarct with abdominal pain. 2. 3.9 cm large intraluminal clot and thrombus partially adherent to the greater curvature of the distal aortic arch. 3. Hepatosplenomegaly. 4. Leukocytosis. 5. Chronic cholelithiasis. 6. Bladder wall thickening. 7. Paroxysmal atrial fibrillation. 8. Hypertension. 9. On Eliquis. 10.Atelectasis/infiltrate in the left lower lobe. 11.Urinary retention. 12.Deep vein thrombosis prophylaxis. 13.Elevated bilirubin. 14.Hyponatremia, mild. 15.Increased WBC possibly reactive. RECOMMENDATIONS AND DISCUSSION: This 75 -year-old gentleman who presented with multiple complex medical issues. We will monitor the patient closely, continue the current medications, management and symptomatic treatment. Continue with Eliquis. Closely follow with multiple consultants as mentioned earlier. Case discussed at length with vascular surgery and we will contact [facility] for possible transfer. Prognosis guarded. Further recommendations to follow. ADDENDUM: 5:12 pm: I discussed with the [facility] vascular surgery, accepted the patient. [facility] transfer team informed that they will contact as soon as possible or when the bed is available. MMODL / IJN: [id number] / MTDD
[2021-05-11 19:51] VITALS: BP 167/74; PULSE 74; RESP 17; TEMP 97.9
--- NOTE | 2021-05-12 05:43 | DS ---
DISCHARGE SUMMARY FINAL DIAGNOSES: 1. Acute multiple splenic infarcts with abdominal pain. 2. 3.9 cm large intraluminal clot and thrombus partially adherent to the greater curvature of the distal aortic arch. 3. Hepatosplenomegaly. 4. Leukocytosis. 5. Chronic cholelithiasis. 6. Bladder wall thickening in the CT scan. 7. Paroxysmal atrial fibrillation. 8. Hypertension. 9. On Eliquis. 10.Atelectasis versus an infiltrate of the left lower lobe. 11.Urinary retention. 12.Deep vein thrombosis prophylaxis. 13.Elevated bilirubin. 14.Hyponatremia mild. 15.Increased WBC possibly reactive. DISCHARGE DISPOSITION: The patient transferred to [facility] in stable condition. Guarded prognosis. Total time taken 35 minutes. HISTORY OF PRESENT ILLNESS: This 75 -year-old gentleman with a past medical history of multiple medical problems being followed by Dr. Rei Moyer in the outpatient setting admitted with abdominal pain. Splenic infarcts are noted. Further evaluation showed elevated D-dimer and CT scan showed a 3.9 cm large intraluminal clot and thrombus partially adherent to the greater curvature of the distal aortic arch and I discussed the case at length with [facility] Vascular team and vascular team will be will be transferring the patient for evaluation and treatment. Dr. Magana was also consulted locally. On exam, vitals are stable. Cardiovascular S1, S2. Abdomen soft. Nervous system: No focal deficits. Please refer to the discharge medications for list of medications. MMODL / IJN: [id number] /
[2021-05-13 09:09] LABS: Methylmalonic Acid 0.27 umol/L (<0.40)
[2021-05-13 16:21] LABS: Protein, Total 6.4 g/dL (6.2-8.2)
[2021-05-14 15:22] LABS: Albumin 3.83 g/dL (3.80-4.90)
[2021-05-14 15:23] LABS: Gamma Globulin 0.65 g/dL (0.70-1.50)
== END 2021-05-11 23:20 | disposition short-term general hospital (02) | DRG 300 ==
LOC: 3SCARD 15:57
PROVIDERS: ADMIT Internal Medicine; ATTEND Internal Medicine
DX: I74.19 Embolism and thrombosis of other parts of aorta (principal); E87.1 Hypo-osmolality and hyponatremia; J98.11 Atelectasis; K80.21 Calculus of gallbladder without cholecystitis with obstruction; D73.5 Infarction of spleen; E78.5 Hyperlipidemia, unspecified; I10 Essential (primary) hypertension; Z86.2 Personal history of diseases of the blood and blood-forming organs and certain disorders involving the immune mechanism; D72.829 Elevated white blood cell count, unspecified; I25.10 Atherosclerotic heart disease of native coronary artery without angina pectoris; I48.0 Paroxysmal atrial fibrillation; K76.9 Liver disease, unspecified; N40.1 Benign prostatic hyperplasia with lower urinary tract symptoms; R79.1 Abnormal coagulation profile; R33.8 Other retention of urine; R79.89 Other specified abnormal findings of blood chemistry; G62.9 Polyneuropathy, unspecified; R76.8 Other specified abnormal immunological findings in serum; Z20.822 Contact with and (suspected) exposure to COVID-19; Z79.01 Long term (current) use of anticoagulants; Z79.02 Long term (current) use of antithrombotics/antiplatelets; Z79.899 Other long term (current) drug therapy; Z82.49 Family history of ischemic heart disease and other diseases of the circulatory system; Z83.3 Family history of diabetes mellitus; Z95.5 Presence of coronary angioplasty implant and graft; Z98.42 Cataract extraction status, left eye; Z98.41 Cataract extraction status, right eye; Z91.81 History of falling
CPT/HCPCS: 71046; 71275; 74021; 74176; 74183; 76705; 80048; 80053; 81003; 82607; 82747; 83735; 83883; 83921; 84165; 85025; 85379; 85610; 85652; 85730; 86038; 86140; 86334; 86431; 87040; 87635; 93975